=== PATIENT | female | born 1955 | race Caucasian/White ===

== ENCOUNTER 2023-02-05 01:02 | Day surgery (SDC) | payer MEDICARE, SELFPAY ==
[2023-01-26 11:13] VITALS: BMI 28.8
[2023-02-05 11:54] VITALS: BP 134/75; PULSE 78; RESP 18; TEMP 36.6; O2SAT 97
--- NOTE | 2023-02-05 11:58 | PM.HPGS ---
History of Present Illness History of Present Illness Consent: Risks, benefits, and alternatives have been discussed and questions answered. Patient agrees to proceed with procedure. Chief complaint: family hx colon ca Narrative: Loraine Israel is a 67 year old female Presents for screening colonoscopy. Patient's current weight appetite and bowel movements are normal. Patient denies abdominal pain. She has had no bleeding. Family history is significant her mother and aunt have had colon cancer. Patient reports her bowel habits are normal. Patient presents today for screening exam. Review of Systems Review of Systems: Review of systems noncontributory. [facility] Social History Social History Smoking status: Never smoker Alcohol intake: current Substance use: never Substance use type: does not use Living arrangements: with family Spiritual care concerns: No Meds Home Medications and Allergies Home Medications Medication Instructions Recorded Confirmed Type ergocalciferol (vitamin D2) 1,250 50,000 unit PO WEEKLY 01/26/23 01/26/23 History mcg (50,000 unit) capsule loratadine 10 mg tablet (Claritin) 10 mg PO DAILY 02/05/23 02/05/23 History Allergies Allergy/AdvReac Type Severity Reaction Status Date / Time No Known Allergies Allergy Mild Verified 02/05/23 11:52 Vital Signs Vital Signs - 24 hr 02/05/23 11:54 Temperature 97.9 F Pulse Rate 78 Respiratory Rate 18 Blood Pressure 134/75 Pulse Oximetry 97 Oxygen Delivery Room Air Exam Narrative: Physical exam reveals patient to be alert. Vital signs stable. HEENT exam is unremarkable. Patient is anicteric. Lungs are clear to auscultation and percussion. Heart is without murmur or extra sounds. Abdomen bowel sounds are present soft nontender with no organomegaly. Digital external rectal exam normal. Assessment and Plan Assessment and plan (1) Family history of colon cancer in mother: Code(s): Z80.0 - Family history of malignant neoplasm of digestive organs Status: Acute Assessment and Plan: Patient's mother several oral other family members have had colon cancer. Plan for surveillance colonoscopy now and consider this a 5 year intervals in the future.
[2023-02-05] MEDS: LACTATED RINGERS 1,000 ML 150 ML IV CONT (12:04)
--- NOTE | 2023-02-05 12:44 | WPDANESEPPF ---
Anes - Initial Pre Proc Eval Procedure: Operation Date: 02/05/23 13:00 Proposed Procedures p Colonoscopy - Wenceslao Galarza MD Date/Time: 02/05/23 12:44 Surgeon: Wenceslao Galarza MD Pre Op Diagnosis: family hx colon ca Patient Data Age: 67 Gender: F Height: 1.63 m Weight: 74.1 kg Last Vital Signs Temp 97.9 F 02/05/23 11:54 Pulse 78 02/05/23 11:54 Resp 18 02/05/23 11:54 BP 134/75 02/05/23 11:54 Pulse Ox 97 02/05/23 11:54 O2 Del Method Room Air 02/05/23 11:54 Allergies Allergy/AdvReac Type Severity Reaction Status Date / Time No Known Allergies Allergy Mild Verified 02/05/23 11:52 Home Medications Medication Instructions Recorded Confirmed Type ergocalciferol (vitamin D2) 1,250 50,000 unit PO WEEKLY 01/26/23 01/26/23 History mcg (50,000 unit) capsule loratadine 10 mg tablet (Claritin) 10 mg PO DAILY 02/05/23 02/05/23 History Patient hx anesthesia problems: none Family hx anesthesia problems: none Results Review: All pre-operative results and documents have been reviewed as part of the pre-operative evaluation. [facility] Social History Social History Smoking status: Never smoker Alcohol intake: current Substance use: never Substance use type: does not use Living arrangements: with family Spiritual care concerns: No Anes - Eval Final PreProcedure Day of Procedure 02/05/23 12:44 Patient weight: normal Heart: regular rate and rhythm Lungs: clear to auscultation Airway: Mallampati scale class II Neurological: alert and oriented Last oral intake: >/= 8 hours ASA classification: II Emergent: no Anesthetic plan: proceed Anesthesia type and monitoring: general GIVS and standard monitoring Results Review: All pre-operative results and documents have been reviewed as part of the pre-operative evaluation. Informed Consent: The patient's anesthetic plan and its attendant risks and benefits were discussed with the patient/family/POA. Questions were solicited and answers provided to the satisfaction of the patient/family/POA.
[2023-02-05] MEDS: SIMETHICONE ORAL SUSPENSION 20 MG/0.3 ML 30 ML BOTTLE 0.6 ML IRRIGATION (13:08)
[2023-02-05 13:18] VITALS: BP 92/59; PULSE 80; RESP 21; O2SAT 98
[2023-02-05 13:27] VITALS: BP 105/68; PULSE 75; RESP 22; O2SAT 99
[2023-02-05 13:37] VITALS: BP 113/75; PULSE 73; RESP 23; O2SAT 99
== END 2023-02-05 13:49 | disposition home or self-care (01) ==
PROVIDERS: PCP Family Medicine Sports Medicine; Visit Provider Internal Medicine Gastroenterology
PROC: 0DJD8ZZ Inspection of Lower Intestinal Tract, Via Natural or Artificial Opening Endoscopic (ICD-10-PCS; CPT 45378; principal; 2023-02-05 13:00)
DX: Z12.11 Encounter for screening for malignant neoplasm of colon (principal); K64.8 Other hemorrhoids; Z80.0 Family history of malignant neoplasm of digestive organs
CPT/HCPCS: G0105; J2704; J7120